=== PATIENT | male | born 1985 | race Hispanic/Latino ===

== ENCOUNTER 2018-11-08 22:33 | Emergency (ER) | payer SELFPAY ==
--- NOTE | 2018-11-08 23:22 | RAD ---
FExam: Chest one view HISTORY:Cough and congestion Comparison: None FINDINGS: Lungs: No masses or consolidation. Cardiac silhouette: Normal size Pulmonary vessels: Normal Pleural Spaces: Clear Pneumothorax: None Osseous abnormalities: None of acuity. IMPRESSION: No acute cardiopulmonary process.
[2018-11-08] MEDS ORDERED: Acetaminophen 500 MG TAB ONE (23:33)
== END 2018-11-09 00:09 | disposition home or self-care (01) ==
LOC: ERS 22:33
DX: J01.90 Acute sinusitis, unspecified (principal)
CPT/HCPCS: 71045; 87804